=== PATIENT | female | born 1985 | race African-American/Black ===

== ENCOUNTER 2017-10-28 20:44 | Emergency (ER) | payer OTHER ==
[2017-10-28] MEDS ORDERED: Lidocaine 1% 20 ML MDV ONE (21:29)
--- NOTE | 2017-10-28 21:51 | RAD ---
RIGHT HAND THREE VIEW 10/28/17 HISTORY: Laceration. COMPARISON: None. FINDINGS: No fracture. No malalignment. No radiopaque foreign object. IMPRESSION: No acute osseous abnormality. POS: [id number]
[2017-10-28] MEDS ORDERED: Bacitracin Zinc Ointment 30 gm TUBE ONE (22:17)
== END 2017-10-28 22:20 | disposition home or self-care (01) ==
LOC: SCSER 20:44
DX: S61.210A Laceration without foreign body of right index finger without damage to nail, initial encounter (principal); W25.XXXA Contact with sharp glass, initial encounter
CPT/HCPCS: 12001; J2001

== ENCOUNTER 2017-11-30 20:07 | Emergency (ER) | payer OTHER ==
[2017-11-30] MEDS ORDERED: Ketorolac Tromethamine 30 MG/ML VIAL ONE (20:55)
== END 2017-11-30 21:14 | disposition home or self-care (01) ==
LOC: ERS 20:07
DX: S80.02XA Contusion of left knee, initial encounter (principal); M54.6 Pain in thoracic spine; M79.671 Pain in right foot; G43.909 Migraine, unspecified, not intractable, without status migrainosus; F32.9 Major depressive disorder, single episode, unspecified; W01.0XXA Fall on same level from slipping, tripping and stumbling without subsequent striking against object, initial encounter; Y99.0 Civilian activity done for income or pay
CPT/HCPCS: 96372; J1885

== ENCOUNTER 2020-07-15 16:11 | Emergency (ER) | payer OTHER ==
[2020-07-15 17:31] LABS: HIV (1/2) Antibody/Antigen Non-Reactive (NonReactive); HIV 1/2 INDEX 0.15 S/CO (<1.00); Hep C IgG Ab Non-Reactive (NonReactive)
[2020-07-15 17:34] LABS: HBSAB Concentration 69.62 mIU/mL; Hep B Surf AB Reactive (NonReactive)
== END 2020-07-15 17:04 | disposition home or self-care (01) ==
LOC: ERS 16:11
DX: S60.411A Abrasion of left index finger, initial encounter (principal); Z77.21 Contact with and (suspected) exposure to potentially hazardous body fluids; G43.909 Migraine, unspecified, not intractable, without status migrainosus; F32.9 Major depressive disorder, single episode, unspecified; W22.8XXA Striking against or struck by other objects, initial encounter
CPT/HCPCS: 36415; 86706; 86803; 87389; 99283

== ENCOUNTER 2020-09-13 11:38 | Emergency (ER) | payer OTHER | END 2020-09-13 12:55 | disposition home or self-care (01) | LOC: ERS 11:38 | DX: R52 Pain, unspecified (principal); Z20.822 Contact with and (suspected) exposure to COVID-19 | CPT/HCPCS: 99283 ==

== ENCOUNTER 2021-06-07 14:10 | Outpatient (CLI) | payer OTHER ==
[2021-06-07 15:10] LABS: SARS-CoV-2 NAA Rapid Test Not Detected (NotDetected)
== END 2021-06-07 14:11 | disposition home or self-care (01) ==
LOC: ER/OP 14:10
PROVIDERS: ATTEND Family Medicine
DX: Z20.822 Contact with and (suspected) exposure to COVID-19 (principal)
CPT/HCPCS: U0002